=== PATIENT | female | born 1975 | race Caucasian/White ===

== ENCOUNTER → 2016-10-23 | Outpatient (CLI) | payer BC ==
--- NOTE | 2016-10-23 11:59 | DIAGNOSTIC IMAGING REPORT ---
CHEST 2 VIEWS ROUTINE CLINICAL HISTORY: POSITIVE QUANTIFERON GOLD EVALUATE FOR MEDICATION INDUCED PULMONARY DISEASE COMPARISON STUDY: No previous studies for comparison. FINDINGS: The cardiac and mediastinal contours are normal. There is no evidence of focal pulmonary consolidation. There is no evidence of failure. No pleural effusions are visualized.[ IMPRESSION: No active disease in the chest. Electronically signed by: Ced Londono M.D. 10/23/2016 11:58 AM
== END | disposition home or self-care (01) ==
LOC: C.RAD1850 11:36
PROVIDERS: ATTEND Family Medicine
DX: R76.12 Nonspecific reaction to cell mediated immunity measurement of gamma interferon antigen response without active tuberculosis (principal)

== ENCOUNTER → 2018-05-04 | Outpatient (CLI) | payer OTHER ==
--- NOTE | 2018-05-04 16:54 | DIAGNOSTIC IMAGING REPORT ---
CHEST 1 VW FRONT-NOT PORTABLE CLINICAL HISTORY: 42 years-old Female presenting with R76.11 PPD positive, rule out TB. TECHNIQUE: PA view of the chest was obtained. COMPARISON: 10/23/2016. FINDINGS: Cardiomediastinal silhouette normal. Lungs and pleural spaces clear. Osseous structures normal. Upper abdomen normal. IMPRESSION: 1. No acute cardiopulmonary disease. No evidence of tuberculosis. Electronically signed by: Rene Soliman M.D. 05/04/2018 4:52 PM Dictated Date/Time: 05/04/2018 4:52 PM
== END | disposition home or self-care (01) ==
LOC: C.RAD1850 16:32
PROVIDERS: ATTEND Acupuncturist
DX: R76.11 Nonspecific reaction to tuberculin skin test without active tuberculosis (principal)